=== PATIENT | male | born 1970 | race Caucasian/White ===

== ENCOUNTER → 2016-11-28 | Outpatient (CLI) | payer BC ==
[~2016-11-28] MED LIST: KEFLEX500 MG PO; MOTRIN800 MG PO
== END | disposition home or self-care (01) ==
LOC: CARD 02:03
DX: R00.2 Palpitations (principal)

== ENCOUNTER → 2016-12-10 | Outpatient (CLI) | payer BC ==
[2016-12-10 06:15] LABS: BASO # 0.1 10*3/uL (0.0-0.1); BASO % 1.6 % (0.0-1.0); EOS # 0.4 10*3/uL (0.0-0.4); EOS % 6.3 % (1.0-4.0); HEMATOCRIT 41.1 % (42.0-52.0); HEMOGLOBIN 14.4 g/dl (14.0-18.0); LYMPH # 1.9 10*3/uL (1.3-4.4); LYMPH % 33.3 % (27.0-41.0); MEAN CELL VOLUME 91.1 fl (80.0-94.0); MEAN CORPUSCULAR HGB 31.9 pg (27.0-31.0); MEAN PLATELET VOLUME 8.7 fl (9.6-12.3); MONO # 0.5 10*3/uL (0.1-1.0); NEUT # 2.8 10*3/uL (2.3-7.9); NEUT % 49.6 % (47.0-73.0); PLATELET COUNT AUTOMATED 279 10*3/uL (130-400); RED BLOOD COUNT 4.51 10*6/uL (4.50-5.90); WHITE BLOOD COUNT 5.6 10*3/uL (4.8-10.8)
[2016-12-10 06:46] LABS: ALBUMIN 3.9 gm/dl (3.1-4.5); ALKALINE PHOSPHATASE 77 U/L (45-117); BILIRUBIN, TOTAL 0.6 mg/dl (0.2-1.0); BUN 10 mg/dl (7-24); CARBON DIOXIDE 29 mmol/L (21-32); CHLORIDE 100 mmol/L (98-107); CHOLESTEROL 182 mg/dL (<200); EST GLOM FILT AFRICAN AMERICAN > 60 ml/min; FREE T4 0.79 ng/dl (0.76-1.46); GLUCOSE 112 mg/dL (65-99); HDL CHOLESTEROL 58 mg/dl (40-60); LDL CHOLESTEROL 94 mg/dL (9-159); POTASSIUM 3.8 mmol/L (3.5-5.1); SGOT/AST 25 IU/L (3-35); SGPT/ALT 32 U/L (12-78); SODIUM 137 mmol/L (136-145); TOTAL PROTEIN 7.3 gm/dL (6.4-8.2); TRIGLYCERIDES 148 mg/dl (<150); VLDL CHOLESTEROL 30 mg/dL (6-40)
[2016-12-10 06:50] LABS: THYROID STIM HORMONE (HS) 0.971 uIU/ml (0.358-4.75)
[2016-12-10 06:51] LABS: C-REACTIVE PROTEIN < 0.29 MG/DL (0-0.3)
[2016-12-10 06:53] LABS: VITAMIN D, 25-HYDROXY 23.7 ng/mL (30-100)
[2016-12-10 06:54] LABS: FOLIC ACID 16.52 ng/mL (>5.38)
== END | disposition home or self-care (01) ==
LOC: LAB 05:32
PROVIDERS: Internal Medicine
DX: I10 Essential (primary) hypertension (principal); M19.019 Primary osteoarthritis, unspecified shoulder; R42 Dizziness and giddiness; J45.909 Unspecified asthma, uncomplicated; J00 Acute nasopharyngitis [common cold]; R05 Cough; M25.511 Pain in right shoulder; S61.200A Unspecified open wound of right index finger without damage to nail, initial encounter; E78.2 Mixed hyperlipidemia; R00.2 Palpitations; R29.0 Tetany; F41.1 Generalized anxiety disorder; L25.9 Unspecified contact dermatitis, unspecified cause; E55.9 Vitamin D deficiency, unspecified

== ENCOUNTER 2016-12-15 21:02 | Emergency (ER) | payer BC ==
[~2016-12-15] VITALS: Ht 180.3 cm; Wt 77.1 kg
[2016-12-15] MEDS ORDERED: ATORVASTATIN CA10 M1 PO (21:10)
[2016-12-15] MEDS ORDERED: CARTIA XT120 MG PO (21:10)
[2016-12-15] MEDS ORDERED: ASPIRIN ADULT L81 M2 PO (21:10)
[2016-12-15] MEDS ORDERED: ALPRAZOLAM0.5 M3 PO (21:11)
[2016-12-15 21:56] VITALS: BP 148/90
[2016-12-15 22:00] LABS: PROTHROMBIN TIME 11.1 SECONDS (9.0-12.4)
[2016-12-15 22:09] LABS: ALBUMIN 3.9 gm/dl (3.1-4.5); ALKALINE PHOSPHATASE 77 U/L (45-117); BILIRUBIN, TOTAL 0.5 mg/dl (0.2-1.0); BUN 8 mg/dl (7-24); CARBON DIOXIDE 27 mmol/L (21-32); CHLORIDE 98 mmol/L (98-107); EST GLOM FILT AFRICAN AMERICAN > 60 ml/min; GLUCOSE 89 mg/dL (65-99); MAGNESIUM 2.1 mg/dL (1.5-2.1); POTASSIUM 3.2 mmol/L (3.5-5.1); SGOT/AST 20 IU/L (3-35); SGPT/ALT 31 U/L (12-78); SODIUM 135 mmol/L (136-145); TOTAL PROTEIN 7.3 gm/dL (6.4-8.2)
[2016-12-15 22:13] LABS: TROPONIN I < 0.015 ng/ml (<0.045)
[2016-12-15 22:41] LABS: BASO # 0.1 10*3/uL (0.0-0.1); EOS # 0.3 10*3/uL (0.0-0.4); EOS % 5.1 % (1.0-4.0); HEMATOCRIT 36.7 % (42.0-52.0); HEMOGLOBIN 12.8 g/dl (14.0-18.0); LYMPH # 2.1 10*3/uL (1.3-4.4); LYMPH % 34.2 % (27.0-41.0); MEAN CELL VOLUME 91.5 fl (80.0-94.0); MEAN CORPUSCULAR HGB 31.9 pg (27.0-31.0); MEAN CORPUSCULAR HGB CONC 34.9 g/dl (33.0-37.0); MEAN PLATELET VOLUME 8.5 fl (9.6-12.3); MONO # 0.7 10*3/uL (0.1-1.0); MONO % 10.9 % (3.0-9.0); NEUT # 2.9 10*3/uL (2.3-7.9); NEUT % 48.6 % (47.0-73.0); PLATELET COUNT AUTOMATED 249 10*3/uL (130-400); RED BLOOD COUNT 4.01 10*6/uL (4.50-5.90); WHITE BLOOD COUNT 6.1 10*3/uL (4.8-10.8)
[2016-12-16] MEDS ORDERED: XANAX0.5 MG PO (00:13)
== END 2016-12-16 00:14 | disposition home or self-care (01) ==
LOC: ED 21:02
PROVIDERS: Emergency Medicine Emergency Medical Services
DX: F41.9 Anxiety disorder, unspecified (principal); Z91.030 Bee allergy status; Z88.1 Allergy status to other antibiotic agents; Z79.82 Long term (current) use of aspirin; Z79.899 Other long term (current) drug therapy

== ENCOUNTER → 2016-12-29 | Outpatient (CLI) | payer BC ==
[~2016-12-29] MED LIST changes: +ALPRAZOLAM0.5 M3 PO; +ASPIRIN ADULT L81 M2 PO; +ATORVASTATIN CA10 M1 PO; +CARTIA XT120 MG PO; +XANAX0.5 MG PO
== END | disposition home or self-care (01) ==
LOC: RAD 17:18
DX: M25.532 Pain in left wrist (principal); M79.641 Pain in right hand; M79.642 Pain in left hand; M25.531 Pain in right wrist

== ENCOUNTER → 2018-11-28 | Outpatient (CLI) | payer BC ==
[2018-11-28 09:48] LABS: BASO # 0.1 10*3/uL (0.0-0.1); BASO % 1.4 % (0.0-1.0); EOS # 0.2 10*3/uL (0.0-0.4); EOS % 2.4 % (1.0-4.0); HEMATOCRIT 44.9 % (42.0-52.0); HEMOGLOBIN 15.3 g/dl (14.0-18.0); LYMPH # 2.2 10*3/uL (1.3-4.4); LYMPH % 33.4 % (27.0-41.0); MEAN CELL VOLUME 93.3 fl (80.0-94.0); MEAN CORPUSCULAR HGB 31.8 pg (27.0-31.0); MEAN CORPUSCULAR HGB CONC 34.1 g/dl (33.0-37.0); MEAN PLATELET VOLUME 8.8 fl (9.6-12.3); MONO # 0.5 10*3/uL (0.1-1.0); MONO % 7.9 % (3.0-9.0); NEUT # 3.6 10*3/uL (2.3-7.9); NEUT % 54.6 % (47.0-73.0); PLATELET COUNT AUTOMATED 329 10*3/uL (130-400); RED BLOOD COUNT 4.81 10*6/uL (4.50-5.90); RED CELL DISTRI WIDTH 12.3 % (0-14.5); WHITE BLOOD COUNT 6.6 10*3/uL (4.8-10.8)
[2018-11-28 10:10] LABS: ALKALINE PHOSPHATASE 83 U/L (45-117); BUN 9 mg/dl (7-24); CHLORIDE 102 mmol/L (98-107); CHOLESTEROL 175 mg/dL (<200); CREATININE 0.93 mg/dL (0.70-1.30); FREE T4 0.79 ng/dl (0.76-1.46); HDL CHOLESTEROL 53 mg/dl (40-60); LDL CHOLESTEROL 100 mg/dL (9-159); SGOT/AST 17 IU/L (3-35); SGPT/ALT 35 U/L (12-78); SODIUM 137 mmol/L (136-145); TOTAL PROTEIN 7.9 gm/dL (6.4-8.2); TRIGLYCERIDES 110 mg/dl (<150); VLDL CHOLESTEROL 22 mg/dL (6-40)
[2018-11-28 10:14] LABS: THYROID STIM HORMONE (HS) 0.728 uIU/ml (0.358-4.75)
[2018-11-28 10:48] LABS: VITAMIN D, 25-HYDROXY 32.6 ng/mL (30-100)
[2018-11-30 08:10] LABS: RHEUMATOID ARTHRITIS FACTOR <10.0 IU/mL (0.0-13.9)
[2018-11-30 22:03] LABS: CCP ANTIBODIES IGG/IGA 5 units (0-19)
[2018-12-03 12:06] LABS: HLA-B27 ANTIGEN Negative (.)
== END | disposition home or self-care (01) ==
LOC: LAB 09:19
PROVIDERS: Internal Medicine; Internal Medicine Rheumatology
DX: Z13.1 Encounter for screening for diabetes mellitus (principal); Z13.21 Encounter for screening for nutritional disorder; M25.50 Pain in unspecified joint; M17.10 Unilateral primary osteoarthritis, unspecified knee; M19.041 Primary osteoarthritis, right hand; E55.9 Vitamin D deficiency, unspecified; D51.0 Vitamin B12 deficiency anemia due to intrinsic factor deficiency; E78.2 Mixed hyperlipidemia; I10 Essential (primary) hypertension

== ENCOUNTER → 2019-04-05 | Outpatient (CLI) | payer BC | END | disposition home or self-care (01) | LOC: RAD 08:09 | DX: R06.02 Shortness of breath (principal); R05 Cough; J00 Acute nasopharyngitis [common cold]; R53.83 Other fatigue ==

== ENCOUNTER → 2019-09-30 | Outpatient (CLI) | payer BC | END | disposition home or self-care (01) | LOC: CARD 13:35 | DX: R00.2 Palpitations (principal) ==

== ENCOUNTER → 2019-10-02 | Outpatient (CLI) | payer BC ==
[2019-10-02 08:34] LABS: BASO # 0.1 10*3/uL (0.0-0.1); BASO % 1.3 % (0.0-1.0); EOS # 0.2 10*3/uL (0.0-0.4); EOS % 3.5 % (1.0-4.0); HEMATOCRIT 44.8 % (42.0-52.0); HEMOGLOBIN 15.2 g/dl (14.0-18.0); LYMPH % 37.6 % (27.0-41.0); MEAN CELL VOLUME 93.9 fl (80.0-94.0); MEAN CORPUSCULAR HGB 31.9 pg (27.0-31.0); MEAN CORPUSCULAR HGB CONC 33.9 g/dl (33.0-37.0); MEAN PLATELET VOLUME 8.6 fl (9.6-12.3); MONO # 0.5 10*3/uL (0.1-1.0); NEUT # 2.6 10*3/uL (2.3-7.9); NEUT % 47.4 % (47.0-73.0); PLATELET COUNT AUTOMATED 330 10*3/uL (130-400); RED BLOOD COUNT 4.77 10*6/uL (4.50-5.90); WHITE BLOOD COUNT 5.4 10*3/uL (4.8-10.8)
[2019-10-02 09:26] LABS: ALBUMIN 4.1 gm/dl (3.1-4.5); ALKALINE PHOSPHATASE 73 U/L (45-117); BUN 9 mg/dl (7-24); CHLORIDE 104 mmol/L (98-107); CHOLESTEROL 202 mg/dL (<200); CREATININE 0.99 mg/dL (0.70-1.30); FREE T4 0.85 ng/dl (0.76-1.46); HDL CHOLESTEROL 53 mg/dl (40-60); LDL CHOLESTEROL 121 mg/dL (9-159); POTASSIUM 4.2 mmol/L (3.5-5.1); SGOT/AST 18 IU/L (3-35); SGPT/ALT 33 U/L (12-78); SODIUM 137 mmol/L (136-145); TOTAL PROTEIN 7.5 gm/dL (6.4-8.2); TRIGLYCERIDES 139 mg/dl (<150); VLDL CHOLESTEROL 28 mg/dL (6-40)
[2019-10-02 09:31] LABS: THYROID STIM HORMONE (HS) 0.559 uIU/ml (0.358-4.75)
[2019-10-02 09:51] LABS: VITAMIN D, 25-HYDROXY 22.8 ng/mL (30-100)
== END | disposition home or self-care (01) ==
LOC: LAB 08:03
PROVIDERS: Internal Medicine
DX: Z13.220 Encounter for screening for lipoid disorders (principal); Z13.1 Encounter for screening for diabetes mellitus; I10 Essential (primary) hypertension; E55.9 Vitamin D deficiency, unspecified

== ENCOUNTER → 2019-10-11 | Outpatient (CLI) | payer BC | END | disposition home or self-care (01) | LOC: CARD 15:00 | DX: R06.02 Shortness of breath (principal) ==

== ENCOUNTER → 2020-02-22 | Outpatient (CLI) | payer BC | END | disposition home or self-care (01) | LOC: COVID19 11:20 | DX: R50.9 Fever, unspecified (principal); Z20.828 Contact with and (suspected) exposure to other viral communicable diseases ==

== ENCOUNTER → 2021-01-18 | Outpatient (CLI) | payer BC | END | disposition home or self-care (01) | LOC: CARD 07:19 | PROVIDERS: ATTEND Internal Medicine | DX: R00.2 Palpitations (principal) ==

== ENCOUNTER → 2021-01-31 | Outpatient (CLI) | payer BC | END | disposition home or self-care (01) | LOC: CARD 00:45 | PROVIDERS: ATTEND Internal Medicine | DX: R06.02 Shortness of breath (principal) ==

== ENCOUNTER → 2021-08-02 | Outpatient (CLI) | payer OTHER | END | disposition home or self-care (01) | LOC: MRI 03:45 | PROVIDERS: ATTEND Internal Medicine | DX: M51.36 Other intervertebral disc degeneration, lumbar region (principal); M47.816 Spondylosis without myelopathy or radiculopathy, lumbar region; M48.061 Spinal stenosis, lumbar region without neurogenic claudication ==

== ENCOUNTER → 2021-08-07 | Outpatient (CLI) | payer OTHER | END | disposition home or self-care (01) | LOC: ORTHO 00:36 | PROVIDERS: ATTEND Orthopaedic Surgery | DX: M17.12 Unilateral primary osteoarthritis, left knee (principal) ==

== ENCOUNTER → 2021-12-02 | Outpatient (CLI) | payer OTHER, BC ==
[~2021-12-02] MED LIST changes: +CARDIZEM120 MG PO; +DICLOFENAC SOD75 MG PO; +OXYCODONE-ACET1 EACH PO; +PROTONIX40 MG PO
[2021-12-02 07:39] LABS: BASO # 0.1 10*3/uL (0.0-0.1); BASO % 0.9 % (0.0-1.0); EOS # 0.2 10*3/uL (0.0-0.4); EOS % 4.2 % (1.0-4.0); HEMATOCRIT 43.6 % (42.0-52.0); LYMPH # 2.2 10*3/uL (1.3-4.4); LYMPH % 38.8 % (27.0-41.0); MEAN CELL VOLUME 94.8 fl (80.0-94.0); MEAN CORPUSCULAR HGB 32.6 pg (27.0-31.0); MEAN CORPUSCULAR HGB CONC 34.4 g/dl (33.0-37.0); MEAN PLATELET VOLUME 8.5 fl (9.6-12.3); MONO # 0.6 10*3/uL (0.1-1.0); MONO % 10.4 % (3.0-9.0); NEUT # 2.6 10*3/uL (2.3-7.9); NEUT % 45.5 % (47.0-73.0); PLATELET COUNT AUTOMATED 321 10*3/uL (130-400); RED CELL DISTRI WIDTH 11.9 % (0-14.5); WHITE BLOOD COUNT 5.8 10*3/uL (4.8-10.8)
[2021-12-02 07:49] LABS: ACT PARTIAL THROMBO TIME 30.2 SECONDS (20.0-32.1)
[2021-12-02 07:58] LABS: ALKALINE PHOSPHATASE 74 U/L (45-117); BUN 12 mg/dl (7-24); CHLORIDE 99 mmol/L (98-107); CHOLESTEROL 190 mg/dL (<200); CREATININE 0.97 mg/dL (0.70-1.30); LDL CHOLESTEROL 104 mg/dL (9-159); SGOT/AST 29 IU/L (3-35); SGPT/ALT 32 U/L (12-78); SODIUM 133 mmol/L (136-145); T3 UPTAKE 38 % (31-39); THYROXINE (T4) TOTAL 6.6 ug/dl (4.5-12.1); TOTAL PROTEIN 7.4 gm/dL (6.4-8.2); TRIGLYCERIDES 195 mg/dl (<150)
[2021-12-02 08:50] LABS: VITAMIN D, 25-HYDROXY 14.7 ng/mL (30-100)
== END | disposition home or self-care (01) ==
LOC: LAB 00:15
PROVIDERS: ATTEND Internal Medicine
DX: Z13.1 Encounter for screening for diabetes mellitus (principal); Z13.21 Encounter for screening for nutritional disorder; Z00.00 Encounter for general adult medical examination without abnormal findings; Z13.220 Encounter for screening for lipoid disorders

== ENCOUNTER 2021-12-05 02:28 | Inpatient (IN) | payer OTHER ==
[2021-12-02 13:56] VITALS: BP 124/78
[2021-12-02 14:49] LABS: BILIRUBIN Negative (Negative); BLOOD Trace-Lysed (Negative); CLARITY Clear (Clear); COLOR Yellow (Yellow); GLUCOSE Negative (Negative); KETONE Negative (Negative); LEUKO ESTERASE Negative (Negative); NITRITE Negative (Negative); SPECIFIC GRAVITY <= 1.005 (1.001-1.030); UROBILINOGEN 0.2 E.U./dl (0.0-1.0)
[2021-12-02 15:41] LABS: EPITHELIAL CELLS 0-2; WBC 0-2 wbc/hpf (0-5)
[2021-12-05] VITALS (8 sets, daily range): BP systolic 107–146; BP diastolic 59–84
[~2021-12-05] VITALS: Ht 180.3 cm; Wt 76.7 kg
[~2021-12-05 02:28] MED LIST changes: -OXYCODONE-ACET1 EACH PO
[2021-12-06] VITALS: BP 111/77; BP 127/65
[2021-12-06 06:35] LABS: BASO % 0.2 % (0.0-1.0); HEMATOCRIT 36.9 % (42.0-52.0); LYMPH # 1.2 10*3/uL (1.3-4.4); LYMPH % 9.3 % (27.0-41.0); MEAN CELL VOLUME 95.3 fl (80.0-94.0); MEAN CORPUSCULAR HGB 32.8 pg (27.0-31.0); MEAN CORPUSCULAR HGB CONC 34.4 g/dl (33.0-37.0); MEAN PLATELET VOLUME 8.9 fl (9.6-12.3); MONO # 1.3 10*3/uL (0.1-1.0); MONO % 10.1 % (3.0-9.0); NEUT # 10.3 10*3/uL (2.3-7.9); NEUT % 79.9 % (47.0-73.0); PLATELET COUNT AUTOMATED 296 10*3/uL (130-400); RED BLOOD COUNT 3.87 10*6/uL (4.50-5.90); RED CELL DISTRI WIDTH 11.9 % (0-14.5); WHITE BLOOD COUNT 12.9 10*3/uL (4.8-10.8)
[2021-12-06 06:58] LABS: CHLORIDE 99 mmol/L (98-107); POTASSIUM 3.7 mmol/L (3.5-5.1); SODIUM 133 mmol/L (136-145)
[2021-12-06 07:02] LABS: BUN 9 mg/dl (7-24); CREATININE 0.96 mg/dL (0.70-1.30)
[2021-12-06 08:00] VITALS: BP 162/86
[2021-12-06 16:00] VITALS: BP 115/64
[2021-12-06 20:00] VITALS: BP 113/72
[2021-12-07] VITALS: BP 108/69
[2021-12-07 06:55] LABS: BASO # 0.1 10*3/uL (0.0-0.1); BASO % 0.7 % (0.0-1.0); EOS # 0.1 10*3/uL (0.0-0.4); EOS % 1.5 % (1.0-4.0); HEMATOCRIT 33.1 % (42.0-52.0); LYMPH # 2.5 10*3/uL (1.3-4.4); LYMPH % 28.8 % (27.0-41.0); MEAN CELL VOLUME 98.5 fl (80.0-94.0); MEAN CORPUSCULAR HGB 32.1 pg (27.0-31.0); MEAN CORPUSCULAR HGB CONC 32.6 g/dl (33.0-37.0); MONO # 1.4 10*3/uL (0.1-1.0); MONO % 16.2 % (3.0-9.0); NEUT # 4.5 10*3/uL (2.3-7.9); NEUT % 52.3 % (47.0-73.0); PLATELET COUNT AUTOMATED 253 10*3/uL (130-400); RED BLOOD COUNT 3.36 10*6/uL (4.50-5.90); RED CELL DISTRI WIDTH 12.4 % (0-14.5); WHITE BLOOD COUNT 8.6 10*3/uL (4.8-10.8)
[2021-12-07 08:00] VITALS: BP 95/53
[2021-12-07 12:00] VITALS: BP 116/62
[2021-12-07] MEDS ORDERED: OXYCODONE-ACET1 EACH PO (15:27)
[2021-12-07 16:00] VITALS: BP 126/65
== END 2021-12-07 16:45 | disposition home or self-care (01) | DRG 470 ==
LOC: SDC 02:28 → 5E 07:57 → SDC 13:15 → 5E 12-07 16:45
PROVIDERS: Orthopaedic Surgery; ADMIT Internal Medicine; ATTEND Internal Medicine
PROC: 0SRD0J9 Replacement of Left Knee Joint with Synthetic Substitute, Cemented, Open Approach (ICD-10-PCS; principal; 2021-12-05)
PROC: 3E0T3BZ Introduction of Anesthetic Agent into Peripheral Nerves and Plexi, Percutaneous Approach (ICD-10-PCS; 2021-12-05)
PROC: 3E0T33Z Introduction of Anti-inflammatory into Peripheral Nerves and Plexi, Percutaneous Approach (ICD-10-PCS; 2021-12-05)
DX: M17.12 Unilateral primary osteoarthritis, left knee (principal); I10 Essential (primary) hypertension; F41.1 Generalized anxiety disorder; M48.00 Spinal stenosis, site unspecified; G89.29 Other chronic pain; M54.50 Low back pain, unspecified; E78.2 Mixed hyperlipidemia; Z91.030 Bee allergy status; Z88.1 Allergy status to other antibiotic agents

== ENCOUNTER → 2021-12-10 | Outpatient (CLI) | payer OTHER ==
[~2021-12-10] MED LIST changes: +OXYCODONE-ACET1 EACH PO
== END | disposition home or self-care (01) ==
LOC: US 10:00
PROVIDERS: ATTEND Internal Medicine
DX: I82.452 Acute embolism and thrombosis of left peroneal vein (principal)

== ENCOUNTER → 2021-12-20 | Outpatient (CLI) | payer OTHER | END | disposition home or self-care (01) | LOC: ORTHO 00:15 | PROVIDERS: ATTEND Orthopaedic Surgery | DX: Z47.1 Aftercare following joint replacement surgery (principal); Z96.652 Presence of left artificial knee joint ==

== ENCOUNTER → 2022-01-09 | Outpatient (CLI) | payer OTHER | END | disposition home or self-care (01) | LOC: ORTHO 00:56 | PROVIDERS: ATTEND Orthopaedic Surgery | DX: M17.11 Unilateral primary osteoarthritis, right knee (principal) ==

== ENCOUNTER → 2022-01-24 | Outpatient (CLI) | payer OTHER | END | disposition home or self-care (01) | LOC: ORTHO 01:48 | PROVIDERS: ATTEND Orthopaedic Surgery | DX: Z47.1 Aftercare following joint replacement surgery (principal); Z96.652 Presence of left artificial knee joint ==

== ENCOUNTER → 2022-02-19 | Outpatient (CLI) | payer OTHER | END | disposition home or self-care (01) | LOC: ORTHO 00:44 | PROVIDERS: ATTEND Orthopaedic Surgery | DX: M25.551 Pain in right hip (principal) ==

== ENCOUNTER 2022-02-26 21:02 | Emergency (ER) | payer OTHER ==
[~2022-02-26] VITALS: Ht 177.8 cm; Wt 74.8 kg
[2022-02-26 21:13] VITALS: BP 146/91
[2022-02-26 21:44] LABS: BASO # 0.1 10*3/uL (0.0-0.1); BASO % 1.2 % (0.0-1.0); EOS # 0.3 10*3/uL (0.0-0.4); EOS % 3.8 % (1.0-4.0); HEMATOCRIT 40.1 % (42.0-52.0); LYMPH # 2.5 10*3/uL (1.3-4.4); LYMPH % 34.3 % (27.0-41.0); MEAN CELL VOLUME 93.3 fl (80.0-94.0); MEAN CORPUSCULAR HGB 31.4 pg (27.0-31.0); MEAN CORPUSCULAR HGB CONC 33.7 g/dl (33.0-37.0); MEAN PLATELET VOLUME 8.6 fl (9.6-12.3); MONO # 0.6 10*3/uL (0.1-1.0); MONO % 8.5 % (3.0-9.0); NEUT # 3.9 10*3/uL (2.3-7.9); NEUT % 52.1 % (47.0-73.0); PLATELET COUNT AUTOMATED 294 10*3/uL (130-400); RED CELL DISTRI WIDTH 12.6 % (0-14.5); WHITE BLOOD COUNT 7.4 10*3/uL (4.8-10.8)
[2022-02-26 21:54] LABS: INTERNATIONAL NORM RATIO 1.2 (2.0-3.5)
[2022-02-26 22:18] LABS: ALKALINE PHOSPHATASE 100 U/L (45-117); BUN 9 mg/dl (7-24); CHLORIDE 102 mmol/L (98-107); CREATININE 0.77 mg/dL (0.70-1.30); POTASSIUM 3.1 mmol/L (3.5-5.1); SGOT/AST 26 IU/L (3-35); SGPT/ALT 29 U/L (12-78); SODIUM 137 mmol/L (136-145); TOTAL PROTEIN 7.1 gm/dL (6.4-8.2)
== END 2022-02-27 01:00 | disposition home or self-care (01) ==
LOC: ED 21:02
PROVIDERS: Physician Assistant
DX: M79.605 Pain in left leg (principal); R07.89 Other chest pain; Z91.030 Bee allergy status; Z88.1 Allergy status to other antibiotic agents; Z79.899 Other long term (current) drug therapy; Z79.82 Long term (current) use of aspirin; Z98.890 Other specified postprocedural states

== ENCOUNTER 2022-03-06 14:10 | Emergency (ER) | payer OTHER ==
[~2022-03-06] VITALS: Wt 76.2 kg
[2022-03-06 14:18] VITALS: BP 143/85
[2022-03-06] MEDS ORDERED: PREDNISONE50 MG PO (16:56)
[2022-03-06] MEDS ORDERED: BENADRYL ALLERG25 M5 PO (16:56)
== END 2022-03-06 17:06 | disposition home or self-care (01) ==
LOC: ED 14:10
DX: T63.441A Toxic effect of venom of bees, accidental (unintentional), initial encounter (principal); Z79.82 Long term (current) use of aspirin; Z79.899 Other long term (current) drug therapy; Z91.030 Bee allergy status; Z88.1 Allergy status to other antibiotic agents; Y92.89 Other specified places as the place of occurrence of the external cause

== ENCOUNTER → 2022-03-07 | Outpatient (CLI) | payer OTHER ==
[~2022-03-07] MED LIST changes: +BENADRYL ALLERG25 M5 PO; +PREDNISONE50 MG PO
== END | disposition home or self-care (01) ==
LOC: ORTHO 01:48
PROVIDERS: ATTEND Orthopaedic Surgery
DX: Z96.652 Presence of left artificial knee joint (principal)

== ENCOUNTER → 2022-03-15 | Outpatient (CLI) | payer OTHER | END | disposition home or self-care (01) | LOC: RAD 00:14 | PROVIDERS: ATTEND Internal Medicine | DX: M25.862 Other specified joint disorders, left knee (principal); R22.42 Localized swelling, mass and lump, left lower limb ==

== ENCOUNTER 2022-04-19 16:51 | Emergency (ER) | payer OTHER ==
[~2022-04-19] VITALS: Ht 180.3 cm; Wt 77.1 kg
[2022-04-19 16:59] VITALS: BP 157/94
== END 2022-04-19 17:27 | disposition home or self-care (01) ==
LOC: ED 16:51
DX: T63.481A Toxic effect of venom of other arthropod, accidental (unintentional), initial encounter (principal); Z79.899 Other long term (current) drug therapy; Z79.82 Long term (current) use of aspirin; Z91.030 Bee allergy status; Z88.1 Allergy status to other antibiotic agents; Y92.89 Other specified places as the place of occurrence of the external cause

== ENCOUNTER → 2022-06-11 | Outpatient (CLI) | payer OTHER | END | disposition home or self-care (01) | LOC: ORTHO 01:48 | PROVIDERS: ATTEND Orthopaedic Surgery | DX: Z47.1 Aftercare following joint replacement surgery (principal); Z96.652 Presence of left artificial knee joint ==

== ENCOUNTER → 2022-06-26 | Outpatient (CLI) | payer OTHER ==
[2022-06-26 07:28] LABS: BASO # 0.1 10*3/uL (0.0-0.1); BASO % 1.2 % (0.0-1.0); EOS # 0.4 10*3/uL (0.0-0.4); EOS % 6.7 % (1.0-4.0); HEMATOCRIT 43.2 % (42.0-52.0); LYMPH # 2.1 10*3/uL (1.3-4.4); LYMPH % 35.5 % (27.0-41.0); MEAN CELL VOLUME 94.9 fl (80.0-94.0); MEAN CORPUSCULAR HGB 32.7 pg (27.0-31.0); MEAN CORPUSCULAR HGB CONC 34.5 g/dl (33.0-37.0); MEAN PLATELET VOLUME 8.6 fl (9.6-12.3); MONO # 0.6 10*3/uL (0.1-1.0); MONO % 10.1 % (3.0-9.0); NEUT # 2.8 10*3/uL (2.3-7.9); NEUT % 46.3 % (47.0-73.0); PLATELET COUNT AUTOMATED 298 10*3/uL (130-400); RED BLOOD COUNT 4.55 10*6/uL (4.50-5.90)
[2022-06-26 07:45] LABS: ALKALINE PHOSPHATASE 88 U/L (45-117); BUN 13 mg/dl (7-24); CHLORIDE 102 mmol/L (98-107); CHOLESTEROL 188 mg/dL (<200); CREATININE 0.85 mg/dL (0.70-1.30); LDL CHOLESTEROL 111 mg/dL (9-159); POTASSIUM 4.4 mmol/L (3.5-5.1); SGOT/AST 19 IU/L (3-35); SGPT/ALT 33 U/L (12-78); SODIUM 135 mmol/L (136-145); TOTAL PROTEIN 7.5 gm/dL (6.4-8.2); TRIGLYCERIDES 186 mg/dl (<150)
[2022-06-26 07:50] LABS: THYROID STIM HORMONE (HS) 0.967 uIU/ml (0.358-4.75)
[2022-06-26 09:53] LABS: VITAMIN D, 25-HYDROXY 21.9 ng/mL (30-100)
== END | disposition home or self-care (01) ==
LOC: LAB 07:08
PROVIDERS: ATTEND Internal Medicine
DX: Z13.220 Encounter for screening for lipoid disorders (principal); Z13.228 Encounter for screening for other metabolic disorders; Z13.6 Encounter for screening for cardiovascular disorders; Z13.89 Encounter for screening for other disorder; Z12.5 Encounter for screening for malignant neoplasm of prostate; Z13.21 Encounter for screening for nutritional disorder; Z13.0 Encounter for screening for diseases of the blood and blood-forming organs and certain disorders involving the immune mechanism; Z13.1 Encounter for screening for diabetes mellitus; R53.81 Other malaise; R79.89 Other specified abnormal findings of blood chemistry; E55.9 Vitamin D deficiency, unspecified; D51.9 Vitamin B12 deficiency anemia, unspecified; D52.9 Folate deficiency anemia, unspecified; E03.9 Hypothyroidism, unspecified

== ENCOUNTER 2022-07-25 15:33 | Inpatient (IN) | payer OTHER ==
[~2022-07-25] VITALS: Ht 180.3 cm; Wt 75.7 kg
[2022-07-25 16:00] VITALS: BP 169/90
[2022-07-25 16:32] LABS: BASO # 0.1 10*3/uL (0.0-0.1); BASO % 1.1 % (0.0-1.0); EOS # 0.4 10*3/uL (0.0-0.4); EOS % 4.9 % (1.0-4.0); HEMATOCRIT 40.6 % (42.0-52.0); LYMPH # 2.2 10*3/uL (1.3-4.4); LYMPH % 30.6 % (27.0-41.0); MEAN CELL VOLUME 94.2 fl (80.0-94.0); MEAN CORPUSCULAR HGB 32.5 pg (27.0-31.0); MEAN CORPUSCULAR HGB CONC 34.5 g/dl (33.0-37.0); MEAN PLATELET VOLUME 8.5 fl (9.6-12.3); MONO # 0.7 10*3/uL (0.1-1.0); MONO % 10.2 % (3.0-9.0); NEUT # 3.8 10*3/uL (2.3-7.9); NEUT % 52.9 % (47.0-73.0); PLATELET COUNT AUTOMATED 310 10*3/uL (130-400); RED BLOOD COUNT 4.31 10*6/uL (4.50-5.90); RED CELL DISTRI WIDTH 12.6 % (0-14.5); WHITE BLOOD COUNT 7.2 10*3/uL (4.8-10.8)
[2022-07-25 16:47] LABS: ALKALINE PHOSPHATASE 86 U/L (45-117); BUN 14 mg/dl (7-24); CHLORIDE 107 mmol/L (98-107); CREATININE 0.93 mg/dL (0.70-1.30); POTASSIUM 3.6 mmol/L (3.5-5.1); SGPT/ALT 30 U/L (12-78); SODIUM 140 mmol/L (136-145)
[2022-07-25 18:54] VITALS: BP 152/92
[2022-07-25 23:11] VITALS: BP 110/67
[2022-07-26 00:16] VITALS: BP 118/61
[2022-07-26 05:54] VITALS: BP 128/71
[2022-07-26 08:00] VITALS: BP 137/86
[2022-07-26 12:00] VITALS: BP 137/86
[2022-07-26 14:31] VITALS: BP 136/74
[2022-07-26 20:00] VITALS: BP 145/77
[2022-07-27] VITALS: BP 122/74
[2022-07-27 07:15] LABS: BASO # 0.1 10*3/uL (0.0-0.1); BASO % 1.2 % (0.0-1.0); EOS # 0.4 10*3/uL (0.0-0.4); EOS % 7.3 % (1.0-4.0); HEMATOCRIT 41.4 % (42.0-52.0); LYMPH % 34.7 % (27.0-41.0); MEAN CELL VOLUME 95.2 fl (80.0-94.0); MEAN CORPUSCULAR HGB 32.4 pg (27.0-31.0); MEAN CORPUSCULAR HGB CONC 34.1 g/dl (33.0-37.0); MEAN PLATELET VOLUME 8.5 fl (9.6-12.3); MONO # 0.6 10*3/uL (0.1-1.0); MONO % 9.9 % (3.0-9.0); NEUT # 2.7 10*3/uL (2.3-7.9); NEUT % 46.7 % (47.0-73.0); PLATELET COUNT AUTOMATED 272 10*3/uL (130-400); RED BLOOD COUNT 4.35 10*6/uL (4.50-5.90); RED CELL DISTRI WIDTH 12.7 % (0-14.5); WHITE BLOOD COUNT 5.7 10*3/uL (4.8-10.8)
[2022-07-27 07:34] LABS: BUN 10 mg/dl (7-24); CHLORIDE 101 mmol/L (98-107); CHOLESTEROL 185 mg/dL (<200); CREATININE 0.84 mg/dL (0.70-1.30); POTASSIUM 3.7 mmol/L (3.5-5.1); SODIUM 134 mmol/L (136-145); TRIGLYCERIDES 223 mg/dl (<150)
[2022-07-27 07:35] LABS: LDL CHOLESTEROL 103 mg/dL (9-159)
[2022-07-27 09:00] VITALS: BP 122/76
[2022-07-27 12:00] VITALS: BP 114/72
[2022-07-27 16:00] VITALS: BP 104/74
[2022-07-27] MEDS ORDERED: TOPROL XL25 MG PO (17:33)
[2022-07-27] MEDS ORDERED: CYMBALTA30 MG PO (17:34)
[2022-07-27 20:00] VITALS: BP 117/76
[2022-07-28] VITALS: BP 137/86
== END 2022-07-28 06:03 | disposition short-term general hospital (02) | DRG 282 ==
LOC: ED 15:33 → EDHOLD 18:16 → 5E 07-26 13:56
PROVIDERS: Student in an Organized Health Care Education/Training Program; ADMIT Internal Medicine; ATTEND Internal Medicine
DX: I21.4 Non-ST elevation (NSTEMI) myocardial infarction (principal); I20.0 Unstable angina; T63.481A Toxic effect of venom of other arthropod, accidental (unintentional), initial encounter; Z96.652 Presence of left artificial knee joint; I10 Essential (primary) hypertension; F32.9 Major depressive disorder, single episode, unspecified; M17.12 Unilateral primary osteoarthritis, left knee; F41.1 Generalized anxiety disorder; E78.2 Mixed hyperlipidemia; Z86.718 Personal history of other venous thrombosis and embolism; Z88.1 Allergy status to other antibiotic agents; Z88.8 Allergy status to other drugs, medicaments and biological substances; Z82.49 Family history of ischemic heart disease and other diseases of the circulatory system; Z82.3 Family history of stroke; Y92.89 Other specified places as the place of occurrence of the external cause

== ENCOUNTER → 2022-08-07 | Outpatient (CLI) | payer OTHER ==
[~2022-08-07] MED LIST changes: +CYMBALTA30 MG PO; +TOPROL XL25 MG PO
== END | disposition home or self-care (01) ==
LOC: US 00:22
PROVIDERS: ATTEND Internal Medicine
DX: I65.23 Occlusion and stenosis of bilateral carotid arteries (principal); H93.A9 Pulsatile tinnitus, unspecified ear

== ENCOUNTER → 2023-03-05 | Outpatient (CLI) | payer OTHER | END | disposition home or self-care (01) | LOC: LAB 03:33 → MRI 09:00 | PROVIDERS: ATTEND Specialist | DX: G50.0 Trigeminal neuralgia (principal); H93.A3 Pulsatile tinnitus, bilateral ==

== ENCOUNTER 2023-03-24 17:28 | Emergency (ER) | payer OTHER ==
[~2023-03-24] VITALS: Wt 2.6 kg
[2023-03-24 17:52] VITALS: BP 145/60
== END 2023-03-24 19:39 | disposition home or self-care (01) ==
LOC: ED 17:28
DX: T63.441A Toxic effect of venom of bees, accidental (unintentional), initial encounter (principal); J45.909 Unspecified asthma, uncomplicated; F41.9 Anxiety disorder, unspecified; I10 Essential (primary) hypertension; M19.90 Unspecified osteoarthritis, unspecified site; E78.5 Hyperlipidemia, unspecified; Z91.030 Bee allergy status; Z88.8 Allergy status to other drugs, medicaments and biological substances; Z98.890 Other specified postprocedural states; Z96.652 Presence of left artificial knee joint; Z95.5 Presence of coronary angioplasty implant and graft; Y92.89 Other specified places as the place of occurrence of the external cause

== ENCOUNTER → 2023-06-23 | Outpatient (CLI) | payer OTHER | END | disposition home or self-care (01) | LOC: CT 06-18 00:33 | PROVIDERS: ATTEND Orthopaedic Surgery | DX: M17.11 Unilateral primary osteoarthritis, right knee (principal); R60.9 Edema, unspecified; R05.9 Cough, unspecified ==

== ENCOUNTER 2024-01-26 00:46 | Inpatient (IN) | payer OTHER ==
[2024-01-22 08:42] VITALS: BP 133/75
[2024-01-22 09:52] LABS: BILIRUBIN Negative (Negative); BLOOD Negative (Negative); CLARITY Clear (Clear); COLOR Yellow (Yellow); GLUCOSE Negative (Negative); KETONE Negative (Negative); LEUKO ESTERASE Negative (Negative); NITRITE Negative (Negative); PH 6.5 (4.5-8.0); SPECIFIC GRAVITY <= 1.005 (1.001-1.030); UROBILINOGEN 0.2 E.U./dl (0.0-1.0)
[2024-01-22 10:39] LABS: ALKALINE PHOSPHATASE 79 U/L (46-116); BUN 8 mg/dl (9-23); CHLORIDE 98 mmol/L (98-107); SGPT/ALT 24 U/L (5-49); TOTAL PROTEIN 7.3 gm/dL (6.0-8.0)
[2024-01-22 10:40] LABS: RBC 0-2 rbc/hpf (0-2)
[2024-01-22 10:41] LABS: EPITHELIAL CELLS 0-2
[~2024-01-26] VITALS: Ht 180.3 cm; Wt 81.6 kg
[2024-01-26] VITALS (9 sets, daily range): BP systolic 79–137; BP diastolic 46–74
[~2024-01-26 00:46] MED LIST changes: +BRILINTA90 M1 PO; +DAILY VALUE1 EACH PO; +LEXAPRO5 M1 PO
[2024-01-26] MEDS ORDERED: Midazolam Hydrochloride 5 MG/5 ML VIAL ONE (07:01)
[2024-01-26] MEDS ORDERED: Ropivacaine Hydrochloride 5 MG/ML 20 ML AMP IJ ONE (07:01)
[2024-01-26] MEDS ORDERED: TRANEXAMIC ACID IN NACL,ISO-OS 100 ML IV ONE ×2 (07:01→07:05)
[2024-01-26] MEDS ORDERED: ceFAZolin sodium/sodium chlor 20 ML IV ONE ×2 (07:02→07:05)
[2024-01-26] MEDS ORDERED: Lactated Ringer's Solution 1,000 ML IV ONE (07:02)
[2024-01-26] MEDS ORDERED: Midazolam Hydrochloride 2 MG/2 ML VIAL IV STA (07:03)
[2024-01-26] MEDS ORDERED: Lactated Ringer's Solution 1,000 ML IV SCH (07:05)
[2024-01-26] MEDS ORDERED: ACETAMINOPHEN 100 ML IV ONE (07:05)
[2024-01-26] MEDS ORDERED: Bupivacaine Hydrochloride/Ep2 30 ML VIAL ONE (07:36)
[2024-01-26] MEDS ORDERED: Ondansetron Hydrochloride 4 MG/2 ML VIAL IV PRN (07:55)
[2024-01-26] MEDS ORDERED: Acetaminophen/Oxycodone 5 MG/325 MG TABLET PO PRN (07:55)
[2024-01-26] MEDS ORDERED: HYDROmorphONE Hydrochloride 0.5 MG/0.5 ML SYRINGE IV PRN (07:55)
[2024-01-26] MEDS ORDERED: SODIUM CHLORIDE 0.9% 1,000 ML IV ONE (10:46)
[2024-01-26] MEDS ORDERED: Cholecalciferol 2,000 UNIT TABLET (50 MCG) PO SCH (12:00)
[2024-01-26] MEDS ORDERED: DOCUSATE SODIUM 100 MG CAP PO SCH (12:00)
[2024-01-26] MEDS ORDERED: ASPIRIN ENTERIC COATED 81 MG TAB PO SCH (12:00)
[2024-01-26] MEDS ORDERED: 'XANAX0.5 MG PO (12:35)
[2024-01-26] MEDS ORDERED: ceFAZolin sodium 1 GM in SYRINGE INFUSION 10 ML IV SCH (14:00)
[2024-01-26] MEDS ORDERED: Ketamine Hydrochloride 50 MG/5 ML SYRINGE IV ONE (17:02)
[2024-01-26] MEDS ORDERED: Midazolam Hydrochloride 2 MG/2 ML VIAL IV ONE (17:02)
[2024-01-26] MEDS ORDERED: PROPOFOL 200 MG/20 ML VIAL IV ONE (17:02)
[2024-01-26] MEDS ORDERED: ePHEDrine Sulfate 25 MG/5 ML SYRINGE IV ONE (17:02)
[2024-01-26] MEDS ORDERED: fentaNYL CITRATE 100 MCG/2 ML VIAL IV ONE (17:02)
[2024-01-26] MEDS ORDERED: ATORVASTATIN CALCIUM 40 MG TABLET PO SCH (18:00)
[2024-01-26] MEDS ORDERED: ALPRAZolam 0.5 MG TAB PO SCH (22:00)
[2024-01-27 00:48] VITALS: BP 169/87
[2024-01-27] MEDS ORDERED: ESCITALOPRAM OXALATE 10 MG TAB PO SCH (06:00)
[2024-01-27 06:38] LABS: BASO # 0.1 10*3/uL (0.0-0.1); BASO % 0.5 % (0.0-1.0); EOS % 0.2 % (1.0-4.0); HEMATOCRIT 37.3 % (42.0-52.0); LYMPH # 1.3 10*3/uL (1.3-4.4); LYMPH % 11.9 % (27.0-41.0); MEAN CELL VOLUME 94.7 fl (80.0-94.0); MEAN CORPUSCULAR HGB CONC 34.9 g/dl (33.0-37.0); MEAN PLATELET VOLUME 8.8 fl (9.6-12.3); MONO # 1.3 10*3/uL (0.1-1.0); MONO % 11.9 % (3.0-9.0); NEUT # 8.2 10*3/uL (2.3-7.9); NEUT % 75.3 % (47.0-73.0); PLATELET COUNT AUTOMATED 291 10*3/uL (130-400); RED BLOOD COUNT 3.94 10*6/uL (4.50-5.90); RED CELL DISTRI WIDTH 12.1 % (0-14.5); WHITE BLOOD COUNT 10.9 10*3/uL (4.8-10.8)
[2024-01-27 06:41] LABS: BUN 6 mg/dl (9-23); CHLORIDE 96 mmol/L (98-107); POTASSIUM 4.2 mmol/L (3.4-5.1)
[2024-01-27] MEDS ORDERED: HYDROmorphONE Hydrochloride 0.5 MG/0.5 ML SYRINGE IV PRN (07:50)
[2024-01-27 08:00] VITALS: BP 176/85
[2024-01-27] MEDS ORDERED: HYDROmorphONE Hydrochloride 1 MG/ML SYR IV PRN ×2 (08:45→20:15)
[2024-01-27] MEDS ORDERED: HYDROmorphONE Hydrochloride 0.5 MG/0.5 ML SYRINGE IV SCH (08:50)
[2024-01-27] MEDS ORDERED: ASPIRIN ENTERIC COATED 81 MG TAB PO SCH ×2 (10:00)
[2024-01-27] MEDS ORDERED: Enoxaparin Sodium 40 MG/0.4 ML SYR SC SCH (10:00)
[2024-01-27] MEDS ORDERED: METOPROLOL SUCCINATE XR 50 MG TAB PO SCH (10:00)
[2024-01-27] MEDS ORDERED: MULTIVITAMIN 1 TAB TAB PO SCH (10:00)
[2024-01-27 12:00] VITALS: BP 180/89
[2024-01-27 16:00] VITALS: BP 193/91
[2024-01-27] MEDS ORDERED: amLODIPine besylate 5 MG TAB PO ONE (20:15)
[2024-01-27 20:34] VITALS: BP 189/90
[2024-01-28] VITALS: BP 164/83
[2024-01-28 06:44] LABS: HEMATOCRIT 33.5 % (42.0-52.0); MEAN CELL VOLUME 93.3 fl (80.0-94.0); MEAN CORPUSCULAR HGB 32.6 pg (27.0-31.0); MEAN CORPUSCULAR HGB CONC 34.9 g/dl (33.0-37.0); MEAN PLATELET VOLUME 8.9 fl (9.6-12.3); PLATELET COUNT AUTOMATED 255 10*3/uL (130-400); RED BLOOD COUNT 3.59 10*6/uL (4.50-5.90); RED CELL DISTRI WIDTH 12.1 % (0-14.5); WHITE BLOOD COUNT 10.2 10*3/uL (4.8-10.8)
[2024-01-28 06:50] LABS: MANUAL DIFF REFLEX YES
[2024-01-28 07:38] LABS: PLATELET SUFFICIENCY NORMAL (NORMAL); TOTAL CELLS COUNTED 100 #CELLS
[2024-01-28 08:00] VITALS: BP 188/84
[2024-01-28] MEDS ORDERED: TICAGRELOR 90 MG TABLET PO SCH (10:00)
[2024-01-28] MEDS ORDERED: amLODIPine besylate 5 MG TAB PO SCH (10:00)
[2024-01-28 12:00] VITALS: BP 156/83
[2024-01-28 16:00] VITALS: BP 122/75
[2024-01-28 20:00] VITALS: BP 138/67
[2024-01-29] VITALS: BP 140/75
[2024-01-29 06:04] LABS: HEMATOCRIT 33.5 % (42.0-52.0); MEAN CELL VOLUME 93.8 fl (80.0-94.0); MEAN CORPUSCULAR HGB 32.8 pg (27.0-31.0); MEAN CORPUSCULAR HGB CONC 34.9 g/dl (33.0-37.0); MEAN PLATELET VOLUME 8.5 fl (9.6-12.3); PLATELET COUNT AUTOMATED 260 10*3/uL (130-400); RED BLOOD COUNT 3.57 10*6/uL (4.50-5.90); RED CELL DISTRI WIDTH 12.1 % (0-14.5); WHITE BLOOD COUNT 9.1 10*3/uL (4.8-10.8)
[2024-01-29 06:34] LABS: MANUAL DIFF REFLEX YES
[2024-01-29 07:45] LABS: TOTAL CELLS COUNTED 100 #CELLS
[2024-01-29 07:46] LABS: PLATELET SUFFICIENCY NORMAL (NORMAL)
[2024-01-29 08:00] VITALS: BP 133/72
[2024-01-29 12:00] VITALS: BP 118/57
[2024-01-29 15:58] VITALS: BP 139/75
[2024-01-29 20:00] VITALS: BP 144/66
[2024-01-30] VITALS: BP 129/66
[2024-01-30 08:00] VITALS: BP 124/72
[2024-01-30 12:00] VITALS: BP 127/71
[2024-01-30 16:00] VITALS: BP 119/67
[2024-01-30] MEDS ORDERED: AMLODIPINE BESYL5 MG PO (17:05)
[2024-01-30] MEDS ORDERED: OXYCODONE-ACET1 EAC3 PO (17:05)
== END 2024-01-30 17:53 | disposition home or self-care (01) | DRG 470 ==
LOC: SDC 00:46 → 4E 11:08 → SDC 14:00 → 4E 01-30 03:13
PROVIDERS: Orthopaedic Surgery; ADMIT Internal Medicine; ATTEND Internal Medicine
PROC: 0SRC0JZ Replacement of Right Knee Joint with Synthetic Substitute, Open Approach (ICD-10-PCS; principal; 2024-01-26)
PROC: 3E0T3BZ Introduction of Anesthetic Agent into Peripheral Nerves and Plexi, Percutaneous Approach (ICD-10-PCS; 2024-01-26)
DX: M17.11 Unilateral primary osteoarthritis, right knee (principal); E87.1 Hypo-osmolality and hyponatremia; I25.10 Atherosclerotic heart disease of native coronary artery without angina pectoris; F41.1 Generalized anxiety disorder; I10 Essential (primary) hypertension; Z96.652 Presence of left artificial knee joint; E87.8 Other disorders of electrolyte and fluid balance, not elsewhere classified; Z96.653 Presence of artificial knee joint, bilateral; E78.2 Mixed hyperlipidemia; K59.09 Other constipation; E55.9 Vitamin D deficiency, unspecified; Z47.1 Aftercare following joint replacement surgery

== ENCOUNTER → 2024-02-03 | Outpatient (CLI) | payer OTHER ==
[~2024-02-03] MED LIST changes: +'XANAX0.5 MG PO; +AMLODIPINE BESYL5 MG PO; +OXYCODONE-ACET1 EAC3 PO
== END | disposition home or self-care (01) ==
LOC: US 14:56
PROVIDERS: ATTEND Internal Medicine
DX: M71.21 Synovial cyst of popliteal space [Baker], right knee (principal); R60.0 Localized edema

== ENCOUNTER → 2024-02-08 | Outpatient (CLI) | payer OTHER ==
[2024-02-08 14:27] LABS: BASO # 0.1 10*3/uL (0.0-0.1); BASO % 0.9 % (0.0-1.0); EOS # 0.4 10*3/uL (0.0-0.4); EOS % 4.1 % (1.0-4.0); HEMATOCRIT 34.1 % (42.0-52.0); LYMPH # 1.9 10*3/uL (1.3-4.4); LYMPH % 19.9 % (27.0-41.0); MEAN CORPUSCULAR HGB 31.5 pg (27.0-31.0); MEAN CORPUSCULAR HGB CONC 33.1 g/dl (33.0-37.0); MEAN PLATELET VOLUME 7.7 fl (9.6-12.3); NEUT # 6.1 10*3/uL (2.3-7.9); NEUT % 64.6 % (47.0-73.0); PLATELET COUNT AUTOMATED 648 10*3/uL (130-400); RED BLOOD COUNT 3.59 10*6/uL (4.50-5.90); WHITE BLOOD COUNT 9.5 10*3/uL (4.8-10.8)
[2024-02-08 14:47] LABS: BUN 9 mg/dl (9-23); CHLORIDE 97 mmol/L (98-107); POTASSIUM 3.6 mmol/L (3.4-5.1)
== END | disposition home or self-care (01) ==
LOC: LAB 13:51
PROVIDERS: ATTEND Internal Medicine
DX: R70.0 Elevated erythrocyte sedimentation rate (principal); R53.81 Other malaise; R79.82 Elevated C-reactive protein (CRP); I10 Essential (primary) hypertension

== ENCOUNTER → 2024-02-10 | Outpatient (CLI) | payer OTHER | LOC: ORTHO 02:17 | PROVIDERS: ATTEND Orthopaedic Surgery | DX: M25.461 Effusion, right knee (principal); M79.89 Other specified soft tissue disorders; Z47.1 Aftercare following joint replacement surgery ==

== ENCOUNTER → 2024-03-09 | Outpatient (CLI) | payer OTHER | END | disposition home or self-care (01) | LOC: ORTHO 02:14 | PROVIDERS: ATTEND Orthopaedic Surgery | DX: Z47.1 Aftercare following joint replacement surgery (principal); Z96.651 Presence of right artificial knee joint ==

== ENCOUNTER → 2024-04-20 | Outpatient (CLI) | payer OTHER | END | disposition home or self-care (01) | LOC: ORTHO 00:50 | PROVIDERS: ATTEND Orthopaedic Surgery | DX: M25.461 Effusion, right knee (principal); M79.89 Other specified soft tissue disorders; Z47.1 Aftercare following joint replacement surgery ==

== ENCOUNTER → 2024-07-26 | Outpatient (CLI) | payer OTHER | END | disposition home or self-care (01) | LOC: ORTHO 02:01 | PROVIDERS: ATTEND Orthopaedic Surgery | DX: Z96.651 Presence of right artificial knee joint (principal) ==

== ENCOUNTER → 2024-09-02 | Outpatient (CLI) | payer OTHER | END | disposition home or self-care (01) | LOC: ORTHO 03:21 | PROVIDERS: ATTEND Orthopaedic Surgery | DX: M19.012 Primary osteoarthritis, left shoulder (principal); M25.512 Pain in left shoulder ==

== ENCOUNTER → 2024-09-13 | Outpatient (CLI) | payer OTHER | END | disposition home or self-care (01) | LOC: RAD 13:36 | PROVIDERS: ATTEND Internal Medicine | DX: R06.02 Shortness of breath (principal); R05.9 Cough, unspecified ==

== ENCOUNTER → 2024-10-24 | Outpatient (CLI) | payer OTHER | END | disposition home or self-care (01) | LOC: ORTHO 03:32 | PROVIDERS: ATTEND Orthopaedic Surgery | DX: Z96.652 Presence of left artificial knee joint (principal); M25.562 Pain in left knee; M79.89 Other specified soft tissue disorders ==

== ENCOUNTER 2024-11-19 17:41 | Emergency (ER) | payer OTHER ==
[~2024-11-19] VITALS: Ht 180.3 cm; Wt 78.9 kg
[2024-11-19 18:04] VITALS: BP 135/70
[2024-11-19 18:59] LABS: BASO % 0.4 % (0.0-1.0); EOS # 0.1 10*3/uL (0.0-0.4); EOS % 0.5 % (1.0-4.0); HEMATOCRIT 38.2 % (42.0-52.0); MEAN CELL VOLUME 93.4 fl (80.0-94.0); MEAN CORPUSCULAR HGB 31.8 pg (27.0-31.0); MEAN PLATELET VOLUME 7.9 fl (9.6-12.3); MONO # 1.2 10*3/uL (0.1-1.0); MONO % 12.5 % (3.0-9.0); NEUT # 7.5 10*3/uL (2.3-7.9); NEUT % 76.7 % (47.0-73.0); PLATELET COUNT AUTOMATED 271 10*3/uL (130-400); RED BLOOD COUNT 4.09 10*6/uL (4.50-5.90); RED CELL DISTRI WIDTH 12.5 % (0-14.5); WHITE BLOOD COUNT 9.8 10*3/uL (4.8-10.8)
[2024-11-19 19:14] LABS: BUN 8 mg/dl (9-23); CHLORIDE 91 mmol/L (98-107); POTASSIUM 3.6 mmol/L (3.4-5.1)
[2024-11-19 19:19] LABS: BILIRUBIN Negative (Negative); BLOOD 2+ (Negative); CLARITY Clear (Clear); COLOR Yellow (Yellow); GLUCOSE Negative (Negative); KETONE Negative (Negative); LEUKO ESTERASE Negative (Negative); NITRITE Negative (Negative)
[2024-11-19 19:31] LABS: BACTERIA TRACE; RBC 31-40 rbc/hpf (0-2); WBC 0-2 wbc/hpf (0-5)
== END 2024-11-19 20:05 | disposition home or self-care (01) ==
LOC: ED 17:41
PROVIDERS: Physician Assistant Medical
DX: B34.9 Viral infection, unspecified (principal); Z20.822 Contact with and (suspected) exposure to COVID-19; E87.1 Hypo-osmolality and hyponatremia; F41.9 Anxiety disorder, unspecified; F32.A Depression, unspecified; J45.909 Unspecified asthma, uncomplicated; I10 Essential (primary) hypertension; E78.5 Hyperlipidemia, unspecified; Z91.030 Bee allergy status; Z88.1 Allergy status to other antibiotic agents; Z88.5 Allergy status to narcotic agent; Z79.899 Other long term (current) drug therapy; Z79.82 Long term (current) use of aspirin; Z98.890 Other specified postprocedural states

== ENCOUNTER 2024-11-23 19:02 | Inpatient (IN) | payer OTHER ==
[~2024-11-23] VITALS: Ht 180.3 cm; Wt 72.1 kg
[2024-11-23 09:15] VITALS: BP 102/67
[2024-11-23 19:02] VITALS: BP 110/72
[2024-11-23 19:42] LABS: BASO % 0.3 % (0.0-1.0); HEMATOCRIT 37.1 % (42.0-52.0); MEAN CELL VOLUME 89.6 fl (80.0-94.0); MEAN CORPUSCULAR HGB 31.4 pg (27.0-31.0); MEAN PLATELET VOLUME 8.4 fl (9.6-12.3); MONO # 1.1 10*3/uL (0.1-1.0); MONO % 8.9 % (3.0-9.0); NEUT # 10.5 10*3/uL (2.3-7.9); NEUT % 81.6 % (47.0-73.0); PLATELET COUNT AUTOMATED 324 10*3/uL (130-400); RED BLOOD COUNT 4.14 10*6/uL (4.50-5.90); RED CELL DISTRI WIDTH 12.9 % (0-14.5); WHITE BLOOD COUNT 12.8 10*3/uL (4.8-10.8)
[2024-11-23 20:16] LABS: BUN 12 mg/dl (9-23); CHLORIDE 84 mmol/L (98-107); POTASSIUM 2.9 mmol/L (3.4-5.1)
[2024-11-23] MEDS ORDERED: SODIUM CHLORIDE 0.9% 1,000 ML IV ONE (20:20)
[2024-11-23] MEDS ORDERED: AZITHROMYCIN 250 ML IV ONE (21:35)
[2024-11-23] MEDS ORDERED: cefTRIAXone Sodium 1 GM/10 ML SYR IV ONE (21:35)
[2024-11-23 22:13] VITALS: BP 116/63
[2024-11-24] VITALS (8 sets, daily range): BP systolic 113–152; BP diastolic 62–87
[2024-11-24 00:38] LABS: BILIRUBIN Negative (Negative); BLOOD 2+ (Negative); CLARITY Clear (Clear); COLOR Yellow (Yellow); GLUCOSE Negative (Negative); KETONE Negative (Negative); LEUKO ESTERASE Negative (Negative); NITRITE Negative (Negative); PH 6.5 (4.5-8.0); SPECIFIC GRAVITY <= 1.005 (1.001-1.030); UROBILINOGEN 0.2 E.U./dl (0.0-1.0)
[2024-11-24 01:10] LABS: BACTERIA TRACE; RBC 16-20 rbc/hpf (0-2)
[2024-11-24] MEDS ORDERED: POTASSIUM CHLORIDE 20 MEQ TAB PO ONE (02:05)
[2024-11-24 06:34] LABS: BUN 9 mg/dl (9-23); CHLORIDE 89 mmol/L (98-107); POTASSIUM 3.7 mmol/L (3.4-5.1)
[2024-11-24] MEDS ORDERED: Albuterol Sulf/Ipratropium 3 ML VIAL NEB PRN (07:20)
[2024-11-24] MEDS ORDERED: IOHEXOL 300 MG/ML 100 ML VIAL IV ONE (07:25)
[2024-11-24] MEDS ORDERED: ACETAMINOPHEN 325 MG TAB PO ONE (08:05)
[2024-11-24 08:28] LABS: BASO % 0.3 % (0.0-1.0); HEMATOCRIT 36.6 % (42.0-52.0); MEAN CELL VOLUME 91.7 fl (80.0-94.0); MEAN CORPUSCULAR HGB 32.3 pg (27.0-31.0); MEAN CORPUSCULAR HGB CONC 35.2 g/dl (33.0-37.0); MEAN PLATELET VOLUME 8.9 fl (9.6-12.3); MONO # 1.1 10*3/uL (0.1-1.0); MONO % 10.4 % (3.0-9.0); NEUT # 8.6 10*3/uL (2.3-7.9); NEUT % 79.3 % (47.0-73.0); PLATELET COUNT AUTOMATED 337 10*3/uL (130-400); RED BLOOD COUNT 3.99 10*6/uL (4.50-5.90); RED CELL DISTRI WIDTH 13.2 % (0-14.5); WHITE BLOOD COUNT 10.8 10*3/uL (4.8-10.8)
[2024-11-24] MEDS ORDERED: METOPROLOL SUCCINATE XR 50 MG TAB PO SCH (10:00)
[2024-11-24] MEDS ORDERED: amLODIPine besylate 5 MG TAB PO SCH (10:00)
[2024-11-24] MEDS ORDERED: GUAIFENESIN 600 MG TAB ER PO SCH (10:00)
[2024-11-24] MEDS ORDERED: ESCITALOPRAM OXALATE 10 MG TAB PO SCH (10:00)
[2024-11-24] MEDS ORDERED: LEVOFLOXACIN 750 MG TAB PO SCH (10:40)
[2024-11-24 11:21] LABS: URINE CHLORIDE, RANDOM < 20 mmol/L
[2024-11-24] MEDS ORDERED: cefTRIAXone Sodium 2 GM in SYRINGE INFUSION 20 ML IV SCH (12:00)
[2024-11-24] MEDS ORDERED: SODIUM CHLORIDE 0.9% 1,000 ML IV SCH (13:35)
[2024-11-24 14:53] LABS: SGPT/ALT 117 U/L (5-49)
[2024-11-24] MEDS ORDERED: ACETAMINOPHEN 325 MG TAB PO PRN ×2 (15:15→16:10)
[2024-11-24] MEDS ORDERED: AZITHROMYCIN 250 ML IV SCH (21:00)
[2024-11-24] MEDS ORDERED: cefTRIAXone Sodium 1 GM in SYRINGE INFUSION 10 ML IV SCH (22:00)
[2024-11-24] MEDS ORDERED: ALPRAZolam 0.5 MG TAB PO SCH (22:00)
[2024-11-25] VITALS: BP 109/72
[2024-11-25 04:00] VITALS: BP 96/56
[2024-11-25 06:42] LABS: BASO # 0.1 10*3/uL (0.0-0.1); BASO % 0.7 % (0.0-1.0); EOS % 0.3 % (1.0-4.0); HEMATOCRIT 34.1 % (42.0-52.0); MEAN CELL VOLUME 91.2 fl (80.0-94.0); MEAN CORPUSCULAR HGB 31.6 pg (27.0-31.0); MEAN CORPUSCULAR HGB CONC 34.6 g/dl (33.0-37.0); MEAN PLATELET VOLUME 8.6 fl (9.6-12.3); MONO % 15.1 % (3.0-9.0); NEUT # 4.2 10*3/uL (2.3-7.9); NEUT % 61.1 % (47.0-73.0); PLATELET COUNT AUTOMATED 378 10*3/uL (130-400); RED BLOOD COUNT 3.74 10*6/uL (4.50-5.90); RED CELL DISTRI WIDTH 13.6 % (0-14.5); WHITE BLOOD COUNT 6.9 10*3/uL (4.8-10.8)
[2024-11-25 06:52] LABS: ALKALINE PHOSPHATASE 132 U/L (46-116); BUN 8 mg/dl (9-23); CHLORIDE 95 mmol/L (98-107); POTASSIUM 3.2 mmol/L (3.4-5.1); SGPT/ALT 106 U/L (5-49); TOTAL PROTEIN 6.9 gm/dL (6.0-8.0)
[2024-11-25 08:00] VITALS: BP 126/79
[2024-11-25] MEDS ORDERED: POTASSIUM CHLORIDE 20 MEQ TAB PO SCH (10:00)
[2024-11-25 12:00] VITALS: BP 116/63
[2024-11-25 15:04] LABS: MYCOPLASMA PNEUMONIAE IGG <100 U/mL (0-99); MYCOPLASMA PNEUMONIAE IGM <770 U/mL (0-769)
[2024-11-25 16:00] VITALS: BP 116/72
[2024-11-25 20:00] VITALS: BP 112/80; BP 113/71; BP 116/72
[2024-11-26] VITALS: BP 113/71; BP 116/76
[2024-11-26 04:00] VITALS: BP 112/72
[2024-11-26 05:03] LABS: HBsAG SCREEN Negative (Negative); HCV Ab Non Reactive (Non Reactive); HEP B CORE Ab, IgM Negative (Negative)
[2024-11-26 06:20] LABS: HEMATOCRIT 34.5 % (42.0-52.0); MEAN CORPUSCULAR HGB 30.9 pg (27.0-31.0); MEAN CORPUSCULAR HGB CONC 33.6 g/dl (33.0-37.0); MEAN PLATELET VOLUME 8.2 fl (9.6-12.3); PLATELET COUNT AUTOMATED 403 10*3/uL (130-400); RED BLOOD COUNT 3.75 10*6/uL (4.50-5.90); RED CELL DISTRI WIDTH 13.6 % (0-14.5); WHITE BLOOD COUNT 5.2 10*3/uL (4.8-10.8)
[2024-11-26 06:27] LABS: MANUAL DIFF REFLEX YES
[2024-11-26 06:33] LABS: ALKALINE PHOSPHATASE 123 U/L (46-116); BUN 8 mg/dl (9-23); CHLORIDE 97 mmol/L (98-107); POTASSIUM 3.5 mmol/L (3.4-5.1); SGPT/ALT 126 U/L (5-49); TOTAL PROTEIN 6.9 gm/dL (6.0-8.0)
[2024-11-26 06:59] LABS: PLATELET SUFFICIENCY HIGH (NORMAL); TOTAL CELLS COUNTED 100 #CELLS
[2024-11-26 07:00] LABS: ACANTHOCYTES FEW; BURR CELLS MODERATE; SCHISTOCYTES FEW
[2024-11-26 08:00] VITALS: BP 129/73
[2024-11-26] MEDS ORDERED: VITAMIN E 400 IU CAP PO SCH (10:00)
[2024-11-26 12:00] VITALS: BP 122/69
[2024-11-26 16:00] VITALS: BP 124/64
== END 2024-11-26 16:53 | disposition home or self-care (01) | DRG 640 ==
LOC: ED 19:02 → EDHOLD 11-24 02:18 → ICCU 11-24 02:18 → EDHOLD 11-24 07:15 → 4E 11-24 07:16 → ICCU 11-24 07:32 → 5E 11-25 09:50
PROVIDERS: Internal Medicine; Internal Medicine Critical Care Medicine; ADMIT Internal Medicine; ATTEND Internal Medicine
DX: E87.1 Hypo-osmolality and hyponatremia (principal); J18.9 Pneumonia, unspecified organism; E87.6 Hypokalemia; E87.8 Other disorders of electrolyte and fluid balance, not elsewhere classified; I25.10 Atherosclerotic heart disease of native coronary artery without angina pectoris; D64.9 Anemia, unspecified; F41.1 Generalized anxiety disorder; E78.5 Hyperlipidemia, unspecified; I10 Essential (primary) hypertension; M17.0 Bilateral primary osteoarthritis of knee; Z96.653 Presence of artificial knee joint, bilateral; R74.01 Elevation of levels of liver transaminase levels; K76.0 Fatty (change of) liver, not elsewhere classified; Z88.6 Allergy status to analgesic agent; Z88.1 Allergy status to other antibiotic agents; Z91.030 Bee allergy status; Z82.49 Family history of ischemic heart disease and other diseases of the circulatory system; Z82.3 Family history of stroke; Z95.5 Presence of coronary angioplasty implant and graft

== ENCOUNTER → 2024-12-16 | Outpatient (CLI) | payer BC | END | disposition home or self-care (01) | LOC: RAD 15:59 | PROVIDERS: ATTEND Internal Medicine | DX: R06.02 Shortness of breath (principal) ==

== ENCOUNTER → 2025-01-25 | Outpatient (CLI) | payer BC | END | disposition home or self-care (01) | LOC: ORTHO 00:50 | PROVIDERS: ATTEND Orthopaedic Surgery | DX: Z96.652 Presence of left artificial knee joint (principal); Z96.651 Presence of right artificial knee joint ==

== ENCOUNTER 2025-03-17 21:18 | Emergency (ER) | payer BC ==
[~2025-03-17] VITALS: Ht 177.8 cm; Wt 78.9 kg
[2025-03-17 21:34] VITALS: BP 155/100
[2025-03-17 21:56] LABS: BASO # 0.1 10*3/uL (0.0-0.1); BASO % 1.1 % (0.0-1.0); EOS # 0.4 10*3/uL (0.0-0.4); EOS % 5.3 % (1.0-4.0); MEAN CELL VOLUME 94.6 fl (80.0-94.0); MEAN CORPUSCULAR HGB 32.5 pg (27.0-31.0); MEAN PLATELET VOLUME 7.9 fl (9.6-12.3); MONO # 0.6 10*3/uL (0.1-1.0); MONO % 8.2 % (3.0-9.0); NEUT # 3.8 10*3/uL (2.3-7.9); NEUT % 53.4 % (47.0-73.0); NUCLEATED RED BLOOD CELL 0.0 % (0.0-0.0); NUCLEATED RED BLOOD CELL 0.0 10*3/uL (0.0-0.0); PLATELET COUNT AUTOMATED 243 10*3/uL (130-400); RED CELL DISTRI WIDTH 11.9 % (0-14.5)
[2025-03-17 22:13] LABS: BUN 8 mg/dl (9-23)
[2025-03-17] MEDS ORDERED: CEPHALEXIN500 M1 PO (22:29)
[2025-03-17] MEDS ORDERED: CEPHALEXIN 500 MG 2 CAP ED PACK PO SCH (22:30)
== END 2025-03-17 22:40 | disposition home or self-care (01) ==
LOC: ED 21:18
PROVIDERS: Nurse Practitioner Family
DX: L08.9 Local infection of the skin and subcutaneous tissue, unspecified (principal); J45.909 Unspecified asthma, uncomplicated; I10 Essential (primary) hypertension; F41.9 Anxiety disorder, unspecified; Z79.899 Other long term (current) drug therapy; Z88.1 Allergy status to other antibiotic agents; Z88.5 Allergy status to narcotic agent; Z91.030 Bee allergy status; Z96.652 Presence of left artificial knee joint; Z98.890 Other specified postprocedural states

== ENCOUNTER → 2025-05-04 | Outpatient (CLI) | payer BC ==
[~2025-05-04] MED LIST changes: +CEPHALEXIN500 M1 PO
== END | disposition home or self-care (01) ==
LOC: CARD 00:49
PROVIDERS: ATTEND Internal Medicine
DX: R06.02 Shortness of breath (principal)

== ENCOUNTER → 2025-06-23 | Outpatient (CLI) | payer BC ==
[~2025-06-23] MED LIST changes: +BUSPAR5 MG PO; +CARBAMAZEPINE200 M2 PO; +PANTOPRAZOLE SO40 MG PO; +Regadenoson 0.4 MG/5 ML SYR IV ONE; -TOPROL XL25 MG PO; +TOPROL XL50 M1 PO; +Technetium Tc 99M Tetrofosmi 0.23 MG KIT IJ SCH
== END | disposition home or self-care (01) ==
LOC: CARD 00:08
PROVIDERS: ATTEND Internal Medicine
DX: I25.10 Atherosclerotic heart disease of native coronary artery without angina pectoris (principal); R06.02 Shortness of breath

== ENCOUNTER → 2025-07-04 | Outpatient (CLI) | payer BC ==
[~2025-07-04] MED LIST changes: -Regadenoson 0.4 MG/5 ML SYR IV ONE; -Technetium Tc 99M Tetrofosmi 0.23 MG KIT IJ SCH
== END | disposition home or self-care (01) ==
LOC: US 04:03
PROVIDERS: ATTEND Internal Medicine
DX: I65.23 Occlusion and stenosis of bilateral carotid arteries (principal); R42 Dizziness and giddiness

== ENCOUNTER → 2025-07-08 | Outpatient (CLI) | payer BC ==
[2025-07-08 08:35] LABS: BASO # 0.1 10*3/uL (0.0-0.1); BASO % 0.9 % (0.0-1.0); EOS # 0.5 10*3/uL (0.0-0.4); EOS % 7.7 % (1.0-4.0); MEAN CELL VOLUME 93.7 fl (80.0-94.0); MEAN CORPUSCULAR HGB 32.7 pg (27.0-31.0); MEAN PLATELET VOLUME 8.2 fl (9.6-12.3); MONO # 0.6 10*3/uL (0.1-1.0); MONO % 9.1 % (3.0-9.0); NEUT # 3.6 10*3/uL (2.3-7.9); NEUT % 55.9 % (47.0-73.0); NUCLEATED RED BLOOD CELL 0.0 % (0.0-0.0); NUCLEATED RED BLOOD CELL 0.0 10*3/uL (0.0-0.0); PLATELET COUNT AUTOMATED 301 10*3/uL (130-400); RED CELL DISTRI WIDTH 12.4 % (0-14.5)
[2025-07-08 09:09] LABS: BUN 7 mg/dl (9-23); FREE T4 1.23 ng/dl (0.89-1.76); LDL CHOLESTEROL 84 mg/dL (9-159); SGPT/ALT 26 U/L (5-49)
[2025-07-08 09:38] LABS: VITAMIN D, 25-HYDROXY 52.2 ng/mL (30-100)
== END | disposition home or self-care (01) ==
LOC: LAB 07:50
PROVIDERS: ATTEND Internal Medicine
DX: I10 Essential (primary) hypertension (principal); R53.83 Other fatigue; G50.0 Trigeminal neuralgia; I25.10 Atherosclerotic heart disease of native coronary artery without angina pectoris; E53.9 Vitamin B deficiency, unspecified; A48.1 Legionnaires' disease; E55.9 Vitamin D deficiency, unspecified; M15.0 Primary generalized (osteo)arthritis; K75.81 Nonalcoholic steatohepatitis (NASH)

== ENCOUNTER → 2025-07-29 | Outpatient (CLI) | payer BC ==
[2025-07-29 12:18] LABS: BUN 9 mg/dl (9-23)
== END | disposition home or self-care (01) ==
LOC: LAB 10:54
PROVIDERS: ATTEND Internal Medicine
DX: I10 Essential (primary) hypertension (principal); E55.9 Vitamin D deficiency, unspecified; D51.9 Vitamin B12 deficiency anemia, unspecified; Z13.0 Encounter for screening for diseases of the blood and blood-forming organs and certain disorders involving the immune mechanism; Z13.1 Encounter for screening for diabetes mellitus; Z13.21 Encounter for screening for nutritional disorder; Z13.220 Encounter for screening for lipoid disorders; Z13.228 Encounter for screening for other metabolic disorders; Z13.6 Encounter for screening for cardiovascular disorders; Z13.29 Encounter for screening for other suspected endocrine disorder

== ENCOUNTER → 2025-08-28 | Outpatient (CLI) | payer BC | END | disposition home or self-care (01) | LOC: RAD 16:52 | PROVIDERS: ATTEND Internal Medicine | DX: R09.89 Other specified symptoms and signs involving the circulatory and respiratory systems (principal) ==